=== PATIENT | male | born 1970 | race Caucasian/White ===

== ENCOUNTER 2016-03-11 18:41 | Observation (INO) | payer MEDICARE ==
[~2016-03-11] VITALS: Ht 167.6 cm; Wt 86.4 kg
[~2016-03-11 18:41] MED LIST: ASPIR 8181 M1 PO; ATORVASTATIN CA80 MG PO; EFFIENT10 MG PO; FLONASE16 G1 BOTH NARES; LISINOPRIL2.5 MG PO; NITROSTAT0.4 MG SL; PROAIR HFA8.5 GM IH; PROVENTIL,2.5 MG/3 M IH; TOPROL XL25 MG PO
[2016-03-11 19:23] LABS: HEMATOCRIT 41.7 % (38.0-50.0); MCH 29.2 PG (29.0-34.0); MCHC 36.2 G/DL (30.0-36.0); MCV 80.5 FL (86-99); MEAN PLAT.VOLUME 9.2 uM^3 (9.0-12.4); PLATELET COUNT 225 K/uL (156-360); RBC DIS.WIDTH-CV 13.2 % (11.8-14.6); RBC DIS.WIDTH-SD 37.6 % (39-53); RED BLOOD COUNT 5.18 M/uL (4.00-5.50); WHITE BLOOD COUNT 8.7 K/uL (4.1-10.2)
[2016-03-11 19:43] LABS: TROP-I INTERPRETATION NEGATIVE; TROPONIN-I 0.02 ng/mL (0.0-0.30)
[2016-03-11 19:53] LABS: CHLORIDE 109 mEq/L (99-109); POTASSIUM 3.9 mEq/L (3.7-5.4); SODIUM 141 mEq/L (136-147)
[2016-03-11 19:55] LABS: GLUCOSE 149 mg/dL (70-99)
[2016-03-11 19:56] LABS: ANION GAP 9 MEQ/L (2-14)
[2016-03-11 19:59] LABS: GFR ESTIMATE (CALCULATED) > 59 mL/min/
[2016-03-11 20:00] LABS: UREA NITROGEN (BUN) 14 mg/dL (9-23)
[2016-03-11] MEDS ORDERED: TOPROL XL50 MG PO (22:32)
[2016-03-11] MEDS ORDERED: CHILD ASPIRIN81 M1 PO (22:33)
[2016-03-11] MEDS ORDERED: ZESTRIL5 MG PO (22:33)
[2016-03-12 01:42] LABS: TROP-I INTERPRETATION NEGATIVE; TROPONIN-I 0.02 ng/mL (0.0-0.30)
[2016-03-12 02:13] VITALS: BP 117/78
[2016-03-12 05:27] VITALS: BP 120/74
[2016-03-12 07:34] LABS: TROP-I INTERPRETATION NEGATIVE; TROPONIN-I 0.01 ng/mL (0.0-0.30)
[2016-03-12 08:00] VITALS: BP 145/88
[2016-03-12 11:30] VITALS: BP 131/72
== END 2016-03-12 12:21 | disposition home or self-care (01) ==
LOC: EME 18:41 → EDOF 03-12 00:25 → 5WEST 03-12 01:42
PROVIDERS: Hospitalist
DX: R07.9 Chest pain, unspecified (principal); I25.10 Atherosclerotic heart disease of native coronary artery without angina pectoris; Z98.61 Coronary angioplasty status; I25.2 Old myocardial infarction; I49.9 Cardiac arrhythmia, unspecified; I10 Essential (primary) hypertension; E78.5 Hyperlipidemia, unspecified; F41.9 Anxiety disorder, unspecified; Z95.810 Presence of automatic (implantable) cardiac defibrillator; I42.9 Cardiomyopathy, unspecified; Z82.49 Family history of ischemic heart disease and other diseases of the circulatory system; E66.9 Obesity, unspecified; Z68.30 Body mass index [BMI] 30.0-30.9, adult; J30.9 Allergic rhinitis, unspecified
CPT/HCPCS: 71020; 80048; 83735; 84484; 85027; 93005; 99281; 99284; G0378

== ENCOUNTER 2017-04-09 16:15 | Emergency (ER) | payer MEDICARE ==
[~2017-04-09] VITALS: Ht 167.6 cm; Wt 84.0 kg
[~2017-04-09 16:15] MED LIST changes: +CHILD ASPIRIN81 M1 PO; +TOPROL XL50 MG PO; +ZESTRIL40 MG PO
[2017-04-09] MEDS ORDERED: PERCOCET 5/31 TABLET PO (22:04)
[2017-04-09 22:28] VITALS: BP 143/82
[2017-04-10] MEDS ORDERED: PLAVIX75 MG PO (13:01)
[2017-04-10] MEDS ORDERED: LIPITOR80 MG PO (13:01)
[2017-04-10] MEDS ORDERED: PERCOCET 5/31 TABLET PO (13:03)
[2017-04-10] MEDS ORDERED: NITROSTAT0.4 MG SL (13:05)
== END 2017-04-09 22:28 | disposition home or self-care (01) ==
LOC: EME 16:15
DX: S82.142A Displaced bicondylar fracture of left tibia, initial encounter for closed fracture (principal); S76.109A Unspecified injury of unspecified quadriceps muscle, fascia and tendon, initial encounter; I10 Essential (primary) hypertension; E78.5 Hyperlipidemia, unspecified; I25.10 Atherosclerotic heart disease of native coronary artery without angina pectoris; I25.2 Old myocardial infarction; V00.321A Fall from snow-skis, initial encounter; Y93.23 Activity, snow (alpine) (downhill) skiing, snowboarding, sledding, tobogganing and snow tubing; Z95.0 Presence of cardiac pacemaker; Z98.61 Coronary angioplasty status
CPT/HCPCS: 73564; 73700; 99281; 99284

== ENCOUNTER 2017-04-13 13:27 | Day surgery (SDC) | payer MEDICARE ==
[~2017-04-13] VITALS: Ht 167.6 cm; Wt 83.9 kg
[~2017-04-13 13:27] MED LIST changes: +LIPITOR80 MG PO; +PERCOCET 5/31 TABLET PO; +PLAVIX75 MG PO
[2017-04-13 13:52] VITALS: BP 138/80
[2017-04-13 14:01] LABS: HEMATOCRIT 43.4 % (38.0-50.0); HEMOGLOBIN 15.3 G/DL (12.5-16.6); MCH 28.8 PG (29.0-34.0); MCHC 35.3 G/DL (30.0-36.0); MCV 81.6 FL (86-99); PLATELET COUNT 302 K/uL (156-360); RBC DIS.WIDTH-CV 12.7 % (11.8-14.6); RBC DIS.WIDTH-SD 37.3 % (39-53); RED BLOOD COUNT 5.32 M/uL (4.00-5.50)
[2017-04-13 14:11] LABS: CHLORIDE 103 MEQ/L (99-109); POTASSIUM 3.9 MEQ/L (3.7-5.4); SODIUM 137 MEQ/L (136-147)
[2017-04-13 14:16] LABS: CREATININE 0.8 MG/DL (0.6-1.3); GFR ESTIMATE (CALCULATED) > 59 mL/min/ (58.99-99999); GLUCOSE 117 mg/dL (70-99); UREA NITROGEN (BUN) 12 mg/dL (9-23)
[2017-04-13 22:20] VITALS: BP 172/91
[2017-04-13 23:46] VITALS: BP 139/92
[2017-04-14 04:28] VITALS: BP 153/89
[2017-04-14 08:30] VITALS: BP 166/95
[2017-04-14] MEDS ORDERED: ASPIRIN EC325 MG PO (09:06)
[2017-04-14] MEDS ORDERED: ENDOCET 5-3251 EACH PO (09:08)
[2017-04-14 12:00] VITALS: BP 154/83
== END 2017-04-14 15:59 | disposition home or self-care (01) ==
LOC: SDC 13:27 → ENRESERV 20:11 → 2SOUTH 20:22 → 3EAST 20:22 → 2SOUTH 20:22 → ENRESERV 20:36 → 3EAST 22:14
PROVIDERS: Orthopaedic Surgery
DX: S82.122A Displaced fracture of lateral condyle of left tibia, initial encounter for closed fracture (principal); S83.262A Peripheral tear of lateral meniscus, current injury, left knee, initial encounter; W18.39XA Other fall on same level, initial encounter; Y93.23 Activity, snow (alpine) (downhill) skiing, snowboarding, sledding, tobogganing and snow tubing; I25.10 Atherosclerotic heart disease of native coronary artery without angina pectoris; Z95.5 Presence of coronary angioplasty implant and graft; I25.2 Old myocardial infarction; I10 Essential (primary) hypertension; E78.5 Hyperlipidemia, unspecified
CPT/HCPCS: 73590; 76000; 80048; 85027; 93005; C1713; G0378; J0690; J1100; J1170; J1885; J2175; J2250; J2270; J2405; J2795; J3010